=== PATIENT | female | born 2000 | race Caucasian/White ===

== ENCOUNTER → 2020-10-26 | Outpatient (CLI) | payer BC ==
[2020-10-26 15:09] LABS: CLARITY URINE CLEAR (CLEAR); COLOR URINE YELLOW (YELLOW); KETONES URINE NEGATIVE (NEGATIVE); LEUKOCYTE ESTERASE URINE 3+ (NEGATIVE); NITRITE URINE NEGATIVE (NEGATIVE); OCCULT BLOOD URINE 1+ (NEGATIVE); PH URINE 7.5 (4.5-8.0); PROTEIN URINE NEGATIVE (NEGATIVE); SPECIFIC GRAVITY URINE 1.008 (1.005-1.030); UROBILINOGEN URINE 0.2 E.U./dL (0.2-1.0)
[2020-10-26 15:12] LABS: CHLORIDE 107 mEq/L (98-107)
[2020-10-26 15:13] LABS: BASOPHILS % 0.5 % (0.0-2.0); EOSINOPHILS % 0.7 % (0.0-5.0); HEMATOCRIT. 37.2 % (36.0-48.0); HEMOGLOBIN. 12.5 g/dL (12.0-16.0); LYMPHOCYTES % 17.1 % (20.0-50.0); MEAN CORPUSCULAR HEMOGLOBIN 29.2 pg (28.0-32.0); MEAN PLATELET VOLUME 8.6 fl (7.4-10.4); MONOCYTES % 4.2 % (2.0-8.0); NEUTROPHILS % 77.5 % (40.0-76.0); PLATELET 259 x1000/uL (130-400); RED BLOOD CELL COUNT 4.27 mill/uL (4.2-5.4); RED CELL DISTRIBUTION WIDTH 14.1 % (11.6-14.6)
[2020-10-26 15:22] LABS: T4 FREE 1.14 ng/dL (0.76-1.46)
[2020-10-26 15:44] LABS: FOLIC ACID (FOLATE) SERUM 17.5 ng/mL (>5.38)
== END | disposition home or self-care (01) ==
LOC: LAB 14:31
DX: R53.83 Other fatigue (principal); Z13.29 Encounter for screening for other suspected endocrine disorder
CPT/HCPCS: 36415; 80053; 81003; 82306; 82607; 82746; 83036; 84439; 84443; 84481; 85025